=== PATIENT | male | born 1985 | race Caucasian/White ===

== ENCOUNTER 2017-04-11 07:40 | Day surgery (SDC) | payer BC ==
[2017-04-10 13:47] VITALS: BMI 28.2
--- NOTE | 2017-04-10 13:56 | HP ---
DATE OF ADMISSION: 04/11/2017 REASON FOR ADMISSION: Soft tissue mass back x2. BRIEF HISTORY: This is a 32-year-old gentleman with a longstanding history of having a soft tissue mass in the small of his left lower back. The mass is approximately the size of a half dollar. The patient states that mass causes him no discomfort. It has gotten larger over the many years. What brought him to the office was that he had a newly discovered mass in the left upper back region just to the left of the base of the neck on the left side. This mass is smaller but causes him pain when he lays on the area. He has neck pain from this, and he also has pain that radiates into his left anterior chest musculature. The patient wished to have these masses removed. PAST MEDICAL HISTORY: No coronary disease, hypertension, or diabetes. PAST SURGICAL HISTORY: None. MEDICATIONS: None. ALLERGIES: None. 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 He does not smoke. He drinks socially. PHYSICAL EXAMINATION: LUNGS: Clear. HEART: Regular. ABDOMEN: Soft. BACK: The patient has a soft tissue mass approximately the size of a half dollar in the left lower to mid back. He also has a soft tissue mass approximately the size of a quarter in the upper back just at the base of the neck. Neither mass is tender on exam. There are no overlying skin changes. IMPRESSION/PLAN: Soft tissue mass of the back x2. These masses are a little firmer than typical lipomas. Therefore, the differential diagnosis would be lipoma versus chronic sebaceous cyst. We will plan for excision in the operating room given their locations. Indications, alternatives, and complications are discussed. Questions answered. We will plan on written consent the day of surgery. Nicolas MILLER [id number] cc: Nicolas Andrade
[2017-04-11] MEDS ORDERED: MIDAZOLAM HCL 2 MG/2 ML SINGLE DOSE VIAL ONE (09:03)
[2017-04-11] MEDS ORDERED: PROPOFOL 20 ML ONE (09:15)
[2017-04-11] MEDS ORDERED: ceFAZolin SODIUM 1 GM VIAL ONE (09:17)
[2017-04-11] MEDS ORDERED: LIDOCAINE HCL 0.5% EPINEPHRINE 1:200,000 50 ML VIAL IJ ONE ×2 (09:27)
[2017-04-11 10:40] VITALS: BP 129/82; PULSE 64; TEMP 98.3
--- NOTE | 2017-04-11 10:57 | OP ---
DATE OF OPERATION: 04/11/2017 PREOPERATIVE DIAGNOSIS: Soft tissue mass, back, x2. POSTOPERATIVE DIAGNOSIS: Soft tissue mass, back, x2 (suspect lipomas). PROCEDURE PERFORMED: Excision of soft tissue mass of the back x2 with a total of 8cm intermediate wound closure (5 cm over the superior mass, 3 cm over the inferior mass). SURGEON: Zeke Palma MD MICROSYSTEMS ENGINEER: None. ANESTHESIA: Shvetwila Berger DO (MAC/1% lidocaine without epinephrine approximately 10 mL). ESTIMATED BLOOD LOSS: Minimal. SPECIMEN: Lipomas x2. INDICATION FOR PROCEDURE: This is a 32-year-old gentleman with 2 soft tissue masses. They cause him discomfort. He wishes to have these removed. Patient identified and appropriately positioned on the operating room table, the area prepped and draped in the usual sterile fashion with ChloraPrep. Next, 1% lidocaine without epinephrine was used for anesthesia approximately 10 mL in total. The superior wound was anesthetized, first. The incision was then made transversely (5 cm). The lipoma was identified and the subcutaneous tissue was teased out from the undersurface of the dermis and superior aspect of the trapezius. The mass excised, the wound irrigated, and the operative field examined and noted to be hemostatic. Palpation of the cavity revealed no other soft tissue masses. The dermis was reapproximated with interrupted, inverted 3- 0 chromic sutures and the skin closed with interrupted 3-0 Prolene followed by Dermabond. Next, the attention was then focused to the lower incision and mass. It similarly was anesthetized and a 3-cm incision overlying the mass was made and deepened through the subcutaneous tissue. The mass was teased in a similar fashion. The dermis was reapproximated with interrupted, inverted 3-0 chromic sutures and the skin closed with 3-0 Prolene sutures followed by Dermabond. The superior lesion was labeled soft tissue mass upper back. The inferior lesion was labeled soft tissue mass lower back. At the conclusion of the case, sponge counts were correct. ATTESTATION: Brief operative note handwritten on the preprinted form. [facility] queried, prior to giving any narcotics. Nicolas MILLER [id number] [facility]
--- NOTE | 2017-04-12 16:22 | PATH ---
Surgical Pathology Report Patient Name: CEDRICK URRUTIA Med. Rec. #: [id number] /Age/Gender: 1985 (Age: 32) / M Account: [id number] Location: COUNT INCLUDES THE [facility] AMBULATORY Taken: 04/11/2017 Received: 04/11/2017 Reported: 04/12/2017 Physicians: Zeke Palma Specimen(s) Received A: SOFT TISSUE MASS LEFT UPPER BACK B: SOFT TISSUE MASS LEFT LOWER BACK Clinical History Neoplasm of soft tissue Final Diagnosis A. BACK, LEFT UPPER, SOFT TISSUE MASS, EXCISION: MATURE ADIPOSE TISSUE, CONSISTENT WITH LIPOMA. B. BACK, LEFT LOWER, SOFT TISSUE MASS, EXCISION: MATURE ADIPOSE TISSUE, CONSISTENT WITH LIPOMA. Electronically Signed Ofe Laguna M.D. Gross Description A. Received in formalin labeled "soft tissue mass left upper back," is a 4.0 x 2.7 x 1.5 cm portion of yellow, lobulated adipose tissue. Sectioning reveals focal brown fibrous tissue. Warehouse Shift Supervisor sections are submitted in one cassette. B. Received in formalin labeled "soft tissue mass left lower back," is a 4.0 x 2.5 x 1.5 cm portion of yellow, lobulated adipose tissue. Sectioning reveals homogeneous yellow, smooth fat. No areas of hemorrhage or necrosis are identified. A traveling sales representative section is submitted in one cassette. 04/11/201704/11/2017
== END 2017-04-11 10:50 | disposition home or self-care (01) ==
LOC: FASU 07:40
PROVIDERS: ATTEND Surgery
PROC: 0JB70ZX Excision of Back Subcutaneous Tissue and Fascia, Open Approach, Diagnostic (ICD-10-PCS; 2017-04-11)
PROC: 0JQ70ZZ Repair Back Subcutaneous Tissue and Fascia, Open Approach (ICD-10-PCS; principal; 2017-04-11 09:11)
DX: D17.1 Benign lipomatous neoplasm of skin and subcutaneous tissue of trunk (principal)
CPT/HCPCS: 88304-TC

== ENCOUNTER 2024-01-18 14:02 | Emergency (ER) | payer BC, OTHER ==
[2024-01-18 14:18] VITALS: BP 136/98; PULSE 73; RESP 18; TEMP 98; BMI 26.9
[2024-01-18] MEDS ORDERED: DIPHTH,PERTUSS(ACELL),TET 0.5 ML DISP.SYRIN IM ONE (14:21)
[2024-01-18] MEDS: DIPHTH,PERTUSS(ACELL),TET 0.5 ML DISP.SYRIN IM ONE (14:23)
== END 2024-01-18 14:35 | disposition home or self-care (01) ==
LOC: FER 14:02
PROC: 3E0234Z Introduction of Serum, Toxoid and Vaccine into Muscle, Percutaneous Approach (ICD-10-PCS; principal; 2024-01-18)
DX: S91.332A Puncture wound without foreign body, left foot, initial encounter (principal); W45.0XXA Nail entering through skin, initial encounter; Z23 Encounter for immunization
CPT/HCPCS: 90715; 99283-25